=== PATIENT | female | born 1980 | race African-American/Black ===

== ENCOUNTER 2016-10-29 22:57 | Emergency (ER) | payer OTHER | END 2016-10-30 04:55 | disposition home or self-care (01) | LOC: ER1 22:57 | DX: R51 Headache (principal); F17.210 Nicotine dependence, cigarettes, uncomplicated; F31.9 Bipolar disorder, unspecified; Z79.899 Other long term (current) drug therapy | CPT/HCPCS: 84703; 99283 ==

== ENCOUNTER 2016-11-26 15:01 | Emergency (ER) | payer OTHER ==
[2016-11-26 17:11] LABS: HEMOGLOBIN 12.7 gm/dl (12.3-15.3); RED BLOOD COUNT 3.9 M/UL (4.00-5.10); WHITE BLOOD COUNT 10.6 K/UL (4.5-11.0)
[2016-11-26 17:40] LABS: BUN/CREATININE RATIO 8 (0-10)
== END 2016-11-26 19:07 | disposition home or self-care (01) ==
LOC: ER1 15:01
PROVIDERS: Family Medicine
DX: R42 Dizziness and giddiness (principal); E87.6 Hypokalemia; R55 Syncope and collapse; R51 Headache; F17.200 Nicotine dependence, unspecified, uncomplicated; Z79.899 Other long term (current) drug therapy
CPT/HCPCS: 36415; 70450; 71010; 80053; 81001; 82550; 82553; 83874; 84484; 84703; 85025; 85379; 93005; 99284

== ENCOUNTER 2016-11-27 12:27 | Emergency (ER) | payer OTHER | END 2016-11-27 14:50 | disposition home or self-care (01) | LOC: ER1 12:27 | DX: J32.9 Chronic sinusitis, unspecified (principal); F17.210 Nicotine dependence, cigarettes, uncomplicated | CPT/HCPCS: 99283 ==

== ENCOUNTER → 2016-12-05 | Outpatient (CLI) | payer OTHER | LOC: US 14:30 | DX: E04.1 Nontoxic single thyroid nodule (principal); E04.2 Nontoxic multinodular goiter | CPT/HCPCS: 76536 ==